=== PATIENT | male | born 1950 | race Caucasian/White ===

== ENCOUNTER 2017-07-16 20:24 | Inpatient (IN) | payer OTHER ==
[~2017-07-16] VITALS: Ht 172.7 cm; Wt 108.9 kg
[~2017-07-16 20:24] MED LIST: ACTOS30 MG PO; AZITHROMYCIN500 MG PO; ETODOLAC600 MG PO; GLUCOVANCE 5/501 TAB PO; TRAMADOL HCL-AP1 TAB PO; TRICOR145 MG PO
[2017-07-16] MEDS ORDERED: AMLOD-VALSA-HC1 EACH (20:38)
[2017-07-16] MEDS ORDERED: HUMALOG100 UNIT/1 (20:39)
[2017-07-16] MEDS ORDERED: TOUJEO SOL300 UNIT/1 (20:39)
[2017-07-21] MEDS ORDERED: LEVSIN/SL0.125 MG PO (10:03)
[2017-07-21] MEDS ORDERED: AMOX1TAB5 PO (10:03)
== END 2017-07-21 11:55 | disposition home or self-care (01) | DRG 392 ==
LOC: ER 20:24 → SEC-K 07-17 08:17 → MEDJ 07-17 08:17
DX: K57.32 Diverticulitis of large intestine without perforation or abscess without bleeding (principal); E11.9 Type 2 diabetes mellitus without complications; R07.89 Other chest pain

== ENCOUNTER 2018-05-14 10:16 | Outpatient (CLI) | payer OTHER ==
[~2018-05-14 10:16] MED LIST changes: +AMLOD-VALSA-HC1 EACH; +AMOX1TAB5 PO; +HUMALOG100 UNIT/1; +LEVSIN/SL0.125 MG PO; +TOUJEO SOL300 UNIT/1
== END 2018-05-14 16:33 | disposition home or self-care (01) ==
LOC: NUCLEAR 10:16
DX: I20.9 Angina pectoris, unspecified (principal)
CPT/HCPCS: 78452; 93017; J0153; A9500; 93307

== ENCOUNTER → 2018-07-03 | Outpatient (CLI) | payer OTHER ==
[~2018-07-03] MED LIST changes: +ASA81 MG; +CARVEDILOL3.125 MG; +PLAVIX75 MG; +SIMVASTATIN40 MG; +XARELTO15 MG
== END | disposition home or self-care (01) ==
LOC: NUCLEAR 15:01
DX: I87.2 Venous insufficiency (chronic) (peripheral) (principal)

== ENCOUNTER 2018-07-10 17:28 | Inpatient (IN) | payer OTHER ==
[~2018-07-10] VITALS: Ht 243.8 cm; Wt 5.0 kg
[~2018-07-10 17:28] MED LIST changes: -ASA81 MG; -CARVEDILOL3.125 MG; -PLAVIX75 MG; -SIMVASTATIN40 MG; -XARELTO15 MG
[2018-07-10] MEDS ORDERED: CARVEDILOL3.125 MG (17:39)
[2018-07-10] MEDS ORDERED: PLAVIX75 MG (17:39)
[2018-07-10] MEDS ORDERED: ASA81 MG (17:39)
[2018-07-10] MEDS ORDERED: XARELTO15 MG (17:40)
[2018-07-10] MEDS ORDERED: SIMVASTATIN40 MG (17:40)
[2018-07-17] MEDS ORDERED: AMOX1TAB5 PO (16:04)
[2018-07-17] MEDS ORDERED: INTESTINEX680 M1 PO (16:05)
[2018-07-17] MEDS ORDERED: SIMVASTATIN40 MG PO (16:08)
== END 2018-07-17 16:31 | disposition home or self-care (01) | DRG 638 ==
LOC: ER 17:28 → MEDJ 17:47
PROVIDERS: ADMIT Internal Medicine
PROC: B54BZZZ Ultrasonography of Right Lower Extremity Veins (ICD-10-PCS; principal; 2018-07-10)
PROC: BL3 Imaging, Connective Tissue, Magnetic Resonance Imaging (MRI) (ICD-10-PCS; 2018-07-15)
DX: E11.628 Type 2 diabetes mellitus with other skin complications (principal); L03.115 Cellulitis of right lower limb; Z79.4 Long term (current) use of insulin; I25.10 Atherosclerotic heart disease of native coronary artery without angina pectoris; E78.49 Other hyperlipidemia; E66.09 Other obesity due to excess calories; E11.65 Type 2 diabetes mellitus with hyperglycemia; E11.22 Type 2 diabetes mellitus with diabetic chronic kidney disease; I12.9 Hypertensive chronic kidney disease with stage 1 through stage 4 chronic kidney disease, or unspecified chronic kidney disease; N18.2 Chronic kidney disease, stage 2 (mild)
CPT/HCPCS: 73221

== ENCOUNTER 2018-12-01 10:28 | Emergency (ER) | payer OTHER ==
[~2018-12-01] VITALS: Ht 172.7 cm; Wt 108.9 kg
[~2018-12-01 10:28] MED LIST changes: +ASA81 MG; +CARVEDILOL3.125 MG; +INTESTINEX680 M1 PO; +PLAVIX75 MG; +SIMVASTATIN40 MG; +SIMVASTATIN40 MG PO; +XARELTO15 MG
[2018-12-01] MEDS ORDERED: NORVASC5 MG (10:42)
[2018-12-01] MEDS ORDERED: NORFLEX100MG PO (14:55)
== END 2018-12-01 15:10 | disposition home or self-care (01) ==
LOC: ER 10:28
DX: K57.90 Diverticulosis of intestine, part unspecified, without perforation or abscess without bleeding (principal)

== ENCOUNTER 2018-12-30 09:03 | Outpatient (CLI) | payer OTHER ==
[~2018-12-30 09:03] MED LIST changes: +NORFLEX100MG PO; +NORVASC5 MG
== END 2018-12-30 09:09 | disposition home or self-care (01) ==
LOC: SONOGRAMA 09:03
DX: R97.20 Elevated prostate specific antigen [PSA] (principal)

== ENCOUNTER 2023-07-31 22:48 | Inpatient (IN) | payer OTHER ==
[~2023-07-31] VITALS: Ht 172.7 cm; Wt 104.3 kg
[2023-07-31] MEDS ORDERED: CARVEDILOL ER40 MG PO (23:14)
[2023-07-31] MEDS ORDERED: GLIPIZIDE XL10 MG (23:14)
[2023-07-31] MEDS ORDERED: OCUVITE LUTEIN1 EAC2 PO (23:14)
[2023-07-31] MEDS ORDERED: LIPITOR40 M1 PO (23:15)
[2023-07-31] MEDS ORDERED: HYDROCHLOROTH12.5 M2 PO (23:15)
[2023-07-31] MEDS ORDERED: BAYER CHEWABLE81 MG PO (23:15)
[2023-07-31] MEDS ORDERED: COZAAR25 MG PO (23:15)
[2023-07-31] MEDS ORDERED: LANTUS SOL100 UNIT/1 (23:16)
[2023-07-31] MEDS ORDERED: GABAPENTIN400 MG PO (23:16)
[2023-08-01] MEDS ORDERED: RINGERS SOLUTION,LACTATED 1,000 ML IV STA (01:23)
[2023-08-01 02:05] LABS: HEMATOCRIT 28.8 % (39.0-48.0); MEAN CELL VOLUME 80.2 fL (80.0-100.00); MEAN CORPUSCULAR HGB CONC 32.6 g/dl (32.0-36.0); RED BLOOD COUNT 3.59 M/uL (4.00-6.00); RED CELL DISTRIBUTION WIDTH 15.9 % (11.5-14.5)
[2023-08-01 02:08] LABS: HEMOGLOBIN 9.4 g/dL (13-16.00); MEAN CORPUSCULAR HEMOGLOBIN 26.1 pg (27.00-32.0); PLATELET COUNT 539 K/uL (150-450)
[2023-08-01 02:19] LABS: ALBUMIN 1.7 gm/dL (3.4-5.0); BILIRUBIN TOTAL 0.46 mg/dL (0.3-1.2); CALCIUM 8.8 mg/dL (8.5-10.1); CREATININE SERUM 1.91 mg/dL (0.70-1.30); GFR 34.71; GLOBULINA 5.2 G/DL (2.4-3.5); POTASSIUM 5.14 mEq/L (3.5-5.1); TOTAL PROTEIN 6.9 gm/dL (6.4-8.2)
[2023-08-01] MEDS ORDERED: 0.9 % SODIUM CHLORIDE 1,000 ML IV SCH ×3 (07:15→18:00)
[2023-08-01 08:12] LABS: URINE APPEARANCE Clear; URINE BILIRRUBIN Negative (NEGATIVE); URINE BLOOD Negative; URINE COLOR Yellow; URINE GLUCOSE Negative (NEGATIVE); URINE LEUKOCYTE Negative; URINE NITRATE Negative; URINE PROTEIN 30 (NEGATIVE)
[2023-08-01 08:15] LABS: URINE BACTERIA 46.6 uL (0.0-1933); URINE EPITHELIAL CELLS 15.1 uL (0.0-38.8); URINE WBC 3.5 uL (0.0-23.2)
[2023-08-01] MEDS ORDERED: SILVER SULFADIAZINE 50 GM JAR TOP SCH (11:52)
[2023-08-01] MEDS ORDERED: NYSTATIN 30 GM CREAM.GM. TOP SCH (11:53)
[2023-08-01] MEDS ORDERED: ZINC OXIDE 30 GM TUBE TOP SCH (11:54)
[2023-08-01] MEDS ORDERED: NYSTATIN 30 GM,SILVER SULFADIAZINE 50 GM,ZINC OXIDE 30 GM TOP SCH (17:00)
[2023-08-01] MEDS ORDERED: INSULIN LISPRO 1,000 UNIT/10 ML UNITS SUBCUTANEO PRN (18:00)
[2023-08-01] MEDS ORDERED: DEXTROSE 50 % IN WATER 0.5 G/ML DISP.SYRIN IV PRN (18:00)
[2023-08-01] MEDS ORDERED: CEFTRIAXONE SODIUM 1,000 MG VIAL IV SCH (18:05)
[2023-08-01] MEDS ORDERED: ACETAMINOPHEN 500 MG GEL..CAP PO PRN (18:15)
[2023-08-01] MEDS ORDERED: hydrALAZINE HCL 20 MG VIAL IV PRN (18:15)
[2023-08-01] MEDS ORDERED: MEPERIDINE HCL/PF 25 MG/ML VIAL IM PRN (18:15)
[2023-08-01] MEDS ORDERED: ONDANSETRON HCL 4 MG in 0.9 % SODIUM CHLORIDE 50 ML IV PRN (18:15)
[2023-08-01] MEDS ORDERED: CEFTRIAXONE SODIUM 1,000 MG VIAL ONE (19:23)
[2023-08-01] MEDS ORDERED: FAMOTIDINE/PF 20 MG/2 ML VIAL ONE (19:24)
[2023-08-01] MEDS ORDERED: DEXTROSE 50 % IN WATER 0.5 G/ML VIAL IV PRN (19:45)
[2023-08-01] MEDS ORDERED: FAMOTIDINE/PF 20 MG in 0.9 % SODIUM CHLORIDE 8 ML IV PUSH SCH (21:00)
[2023-08-02 06:34] LABS: INR 1.06; PARTIAL THROMBOPLASTIN TIME 22.8 SECONDS (22.0-34.0); PROTHROMBIN TIME 11.1 SECONDS (9.0-11.5)
[2023-08-02 07:09] LABS: MEAN CELL VOLUME 78.8 fL (80.0-100.00); MEAN CORPUSCULAR HGB CONC 33.3 g/dl (32.0-36.0); PLATELET COUNT 450 K/uL (150-450); RED BLOOD COUNT 3.18 M/uL (4.00-6.00); RED CELL DISTRIBUTION WIDTH 16.3 % (11.5-14.5)
[2023-08-02] MEDS ORDERED: FAMOTIDINE/PF 20 MG/2 ML VIAL ONE ×2 (07:10→16:13)
[2023-08-02 07:31] LABS: HEMOGLOBIN 8.3 g/dL (13-16.00); MEAN CORPUSCULAR HEMOGLOBIN 26.1 pg (27.00-32.0)
[2023-08-02 08:05] LABS: ALBUMIN 1.6 gm/dL (3.4-5.0); BILIRUBIN TOTAL 0.31 mg/dL (0.3-1.2); BILIRUBIN,CONJUGATED 0.18 mg/dL (0.0-0.2); BILIRUBIN,UNCONJUGATED 0.13 mg/dL (0.0-0.6); CHOL HDL RATIO 2.8 (0-5.0); TOTAL PROTEIN 5.4 gm/dL (6.4-8.2)
[2023-08-02 08:08] LABS: ALBUMIN 1.6 gm/dL (3.4-5.0); BILIRUBIN TOTAL 0.31 mg/dL (0.3-1.2); C-REACTIVE PROTEIN 11.1 MG/DL (0.00-0.29); CALCIUM 8.5 mg/dL (8.5-10.1); CREATININE SERUM 1.46 mg/dL (0.70-1.30); GFR 47.33; GLOBULINA 3.8 G/DL (2.4-3.5); POTASSIUM 4.99 mEq/L (3.5-5.1); TOTAL PROTEIN 5.4 gm/dL (6.4-8.2)
[2023-08-02 08:21] LABS: URINE APPEARANCE Clear; URINE BILIRRUBIN Negative (NEGATIVE); URINE BLOOD Negative; URINE COLOR Yellow; URINE GLUCOSE Negative (NEGATIVE); URINE LEUKOCYTE Negative; URINE NITRATE Negative; URINE PROTEIN 30 (NEGATIVE)
[2023-08-02 08:25] LABS: URINE BACTERIA 26.4 uL (0.0-1933); URINE EPITHELIAL CELLS 1.6 uL (0.0-38.8); URINE WBC 2.1 uL (0.0-23.2)
[2023-08-02 09:00] LABS: URINE RBC 1.8 uL (0.0-20.8)
[2023-08-02] MEDS ORDERED: ASPIRIN 81 MG TABLET.EC PO SCH (09:00)
[2023-08-02] MEDS ORDERED: ATORVASTATIN CALCIUM 20 MG TABLET PO SCH (09:00)
[2023-08-02] MEDS ORDERED: TAMSULOSIN HCL 0.4 MG CAP PO SCH (09:00)
[2023-08-02] MEDS ORDERED: CARVEDILOL 25 MG TABLET PO SCH (09:00)
[2023-08-02] MEDS ORDERED: HYDROCHLOROTHIAZIDE 12.5 MG CAPSULE PO SCH (09:00)
[2023-08-02] MEDS ORDERED: ENOXAPARIN SODIUM 40 MG/0.4 ML SYRINGE SUBCUTANEO SCH (09:00)
[2023-08-02] MEDS ORDERED: LOSARTAN POTASSIUM 100 MG TABLET PO SCH (09:00)
[2023-08-02 09:36] LABS: C-REACTIVE PROTEIN 11.2 MG/DL (0.00-0.29)
[2023-08-02] MEDS ORDERED: Dextrose ORAL GEL 37.5GM GEL PO ONE (09:51)
[2023-08-02 15:36] LABS: HEMATOCRIT 27.5 % (39.0-48.0); HEMOGLOBIN 9.2 g/dL (13-16.00); MEAN CELL VOLUME 80.7 fL (80.0-100.00); MEAN CORPUSCULAR HEMOGLOBIN 26.9 pg (27.00-32.0); MEAN CORPUSCULAR HGB CONC 33.3 g/dl (32.0-36.0); PLATELET COUNT 536 K/uL (150-450); RED BLOOD COUNT 3.41 M/uL (4.00-6.00)
[2023-08-02 16:34] LABS: ERYTHROCYTE SEDIMENTATION RATE 86 mm/hr
[2023-08-03] MEDS ORDERED: FAMOTIDINE/PF 20 MG/2 ML VIAL ONE (07:08)
[2023-08-03 08:14] LABS: CALCIUM 8.1 mg/dL (8.5-10.1); CREATININE SERUM 1.32 mg/dL (0.70-1.30); GFR 53.17; POTASSIUM 4.9 mEq/L (3.5-5.1)
[2023-08-03 08:54] LABS: HEMATOCRIT 24.5 % (39.0-48.0); MEAN CELL VOLUME 80.2 fL (80.0-100.00); MEAN CORPUSCULAR HEMOGLOBIN 26.2 pg (27.00-32.0); MEAN CORPUSCULAR HGB CONC 32.6 g/dl (32.0-36.0); PLATELET COUNT 418 K/uL (150-450); RED BLOOD COUNT 3.05 M/uL (4.00-6.00)
[2023-08-03] MEDS ORDERED: LACTOBACILLUS ACIDOPHILUS 1 CAP CAP PO SCH (09:00)
[2023-08-03] MEDS ORDERED: SODIUM BICARBONATE 325 MG TABLET PO SCH (17:00)
[2023-08-04] MEDS ORDERED: TUBERCULIN,PURIF.PROT.DERIV. 5 TU/0.1 ML VIAL ID ONE (08:00)
[2023-08-04] MEDS ORDERED: FAMOTIDINE/PF 20 MG/2 ML VIAL ONE (19:28)
[2023-08-05 07:39] LABS: HEMATOCRIT 24.1 % (39.0-48.0); MEAN CORPUSCULAR HEMOGLOBIN 26.1 pg (27.00-32.0); MEAN CORPUSCULAR HGB CONC 33.5 g/dl (32.0-36.0); PLATELET COUNT 439 K/uL (150-450); RED CELL DISTRIBUTION WIDTH 16.2 % (11.5-14.5)
[2023-08-05 07:56] LABS: HEMOGLOBIN 8.1 g/dL (13-16.00)
[2023-08-05] MEDS ORDERED: FAMOTIDINE/PF 20 MG/2 ML VIAL ONE (08:04)
[2023-08-05] MEDS ORDERED: TRAMADOL HCL 50 MG TABLET PO PRN (08:45)
[2023-08-05] MEDS ORDERED: AMINO ACIDS 1 EACH TABLET PO SCH (09:00)
[2023-08-05] MEDS ORDERED: FERROUS SULFATE 325 MG TABLET.EC PO SCH (10:44)
[2023-08-05 17:03] LABS: FERRITIN 1277.9 NG/ML (26-388)
[2023-08-05] MEDS ORDERED: EPOETIN ALFA-EPBX 10,000 UNIT/ML VIAL (Retacrit) SUBCUTANEO NR (19:45)
[2023-08-06] MEDS ORDERED: FUROsemide 20 MG/2 ML VIAL IV SCH (13:30)
[2023-08-06] MEDS ORDERED: BARIUM SULFATE 450 ML ORAL.SUSP PO NR (14:00)
[2023-08-06 16:12] LABS: FERRITIN 1264.8 NG/ML (26-388)
[2023-08-06 16:54] LABS: FOLIC ACID 12.58 ng/ml (4.78-20)
[2023-08-06 21:33] LABS: RH NEGATIVE
[2023-08-07 01:05] LABS: hav igm Negative (Negative); hcv Non Reactive (Non Reactive); hep b c Negative (Negative)
[2023-08-07] MEDS ORDERED: BARIUM SULFATE 450 ML ORAL.SUSP PO ONE (07:15)
[2023-08-07] MEDS ORDERED: SOD FERRIC GLUC COMPLX/SUCROSE 62.5 MG/5 ML AMPUL IV SCH (09:00)
[2023-08-07] MEDS ORDERED: TRAMADOL HCL 50 MG TABLET PO PRN (10:45)
[2023-08-07] MEDS ORDERED: SODIUM CHLORIDE 0.45 % 1,000 ML IV SCH (16:15)
[2023-08-07] MEDS ORDERED: DOXAZOSIN MESYLATE 2 MG TABLET PO SCH (21:00)
[2023-08-08] MEDS ORDERED: CEFTRIAXONE SODIUM 2,000 MG VIAL IV SCH (09:00)
[2023-08-08 09:08] LABS: free psa < 0.02 ng/mL; total psa < 0.1 ng/mL (0.0-4.0)
[2023-08-09 04:08] LABS: HEMATOCRIT 30.5 % (39.0-48.0); HEMOGLOBIN 10.3 g/dL (13-16.00); MEAN CELL VOLUME 77.8 fL (80.0-100.00); MEAN CORPUSCULAR HEMOGLOBIN 26.2 pg (27.00-32.0); MEAN CORPUSCULAR HGB CONC 33.7 g/dl (32.0-36.0); PLATELET COUNT 431 K/uL (150-450); RED BLOOD COUNT 3.91 M/uL (4.00-6.00); RED CELL DISTRIBUTION WIDTH 15.6 % (11.5-14.5)
[2023-08-09 04:49] LABS: ALBUMIN 1.9 gm/dL (3.4-5.0); BILIRUBIN TOTAL 0.86 mg/dL (0.3-1.2); CALCIUM 8.3 mg/dL (8.5-10.1); CREATININE SERUM 1.37 mg/dL (0.70-1.30); GFR 50.93; GLOBULINA 3.7 G/DL (2.4-3.5); POTASSIUM 4.61 mEq/L (3.5-5.1); TOTAL PROTEIN 5.6 gm/dL (6.4-8.2)
[2023-08-12] MEDS ORDERED: MIDAZOLAM HCL 2 MG/2 ML VIAL IV PUSH ONE (17:45)
[2023-08-12] MEDS ORDERED: fentaNYL CITRATE 50 MCG/ML AMPUL IV PUSH ONE (17:45)
[2023-08-13 08:56] LABS: HEMOGLOBIN 9.1 g/dL (13-16.00); MEAN CELL VOLUME 79.4 fL (80.0-100.00); MEAN CORPUSCULAR HEMOGLOBIN 26.6 pg (27.00-32.0); MEAN CORPUSCULAR HGB CONC 33.5 g/dl (32.0-36.0); PLATELET COUNT 284 K/uL (150-450); RED BLOOD COUNT 3.41 M/uL (4.00-6.00); RED CELL DISTRIBUTION WIDTH 16.2 % (11.5-14.5)
[2023-08-13 09:01] LABS: ERYTHROCYTE SEDIMENTATION RATE 32 mm/hr
[2023-08-13 09:18] LABS: ALBUMIN 1.7 gm/dL (3.4-5.0); BILIRUBIN TOTAL 0.31 mg/dL (0.3-1.2); C-REACTIVE PROTEIN 4.64 MG/DL (0.00-0.29); CALCIUM 7.8 mg/dL (8.5-10.1); CREATININE SERUM 1.17 mg/dL (0.70-1.30); GFR 61.11; GLOBULINA 3.2 G/DL (2.4-3.5); POTASSIUM 4.27 mEq/L (3.5-5.1); TOTAL PROTEIN 4.9 gm/dL (6.4-8.2)
[2023-08-13] MEDS ORDERED: SODIUM CHLORIDE FOR INHALATION 1 VIAL.NEB IH NR (13:00)
[2023-08-13] MEDS ORDERED: ASCORBIC ACID 500 MG TABLET PO SCH (13:00)
[2023-08-13] MEDS ORDERED: ZINC SULFATE 220 MG CAPSULE PO SCH (17:00)
[2023-08-13] MEDS ORDERED: REMDESIVIR 100 MG VIAL IV SCH (17:00)
[2023-08-13] MEDS ORDERED: CHOLECALCIFEROL (VITAMIN D3) 5,000 UNITS TABLET PO SCH (17:00)
[2023-08-13] MEDS ORDERED: SODIUM CHLORIDE FOR INHALATION 1 VIAL.NEB IH SCH (21:00)
[2023-08-14] MEDS ORDERED: IRON FUM,PS/FOLIC ACID/VITC/B3 1 CAP CAPSULE PO SCH (09:00)
[2023-08-14] MEDS ORDERED: REMDESIVIR 100 MG VIAL IV SCH (12:00)
[2023-08-15 08:39] LABS: HEMATOCRIT 26.4 % (39.0-48.0); MEAN CELL VOLUME 79.3 fL (80.0-100.00); MEAN CORPUSCULAR HGB CONC 33.4 g/dl (32.0-36.0); PLATELET COUNT 281 K/uL (150-450); RED BLOOD COUNT 3.33 M/uL (4.00-6.00); RED CELL DISTRIBUTION WIDTH 16.5 % (11.5-14.5)
[2023-08-15 08:42] LABS: MEAN CORPUSCULAR HEMOGLOBIN 26.4 pg (27.00-32.0)
[2023-08-15 08:43] LABS: HEMOGLOBIN 8.8 g/dL (13-16.00)
[2023-08-15] MEDS ORDERED: FUROsemide 20 MG/2 ML VIAL IV SCH (14:45)
[2023-08-17 04:23] LABS: HEMATOCRIT 33.3 % (39.0-48.0); HEMOGLOBIN 11.3 g/dL (13-16.00); MEAN CELL VOLUME 79.5 fL (80.0-100.00); MEAN CORPUSCULAR HGB CONC 33.9 g/dl (32.0-36.0); PLATELET COUNT 282 K/uL (150-450); RED BLOOD COUNT 4.19 M/uL (4.00-6.00); RED CELL DISTRIBUTION WIDTH 16.5 % (11.5-14.5)
[2023-08-18] MEDS ORDERED: GUAIFENESIN/DEXTROMETHORPHAN 10ML BLIST.PACK PO SCH (13:15)
[2023-08-19] MEDS ORDERED: DOXYCYCLINE HYCLATE 100 MG CAPSULE PO SCH (21:00)
[2023-08-20 08:19] LABS: HEMATOCRIT 34.7 % (39.0-48.0); HEMOGLOBIN 11.6 g/dL (13-16.00); MEAN CELL VOLUME 80.5 fL (80.0-100.00); MEAN CORPUSCULAR HEMOGLOBIN 26.8 pg (27.00-32.0); MEAN CORPUSCULAR HGB CONC 33.2 g/dl (32.0-36.0); PLATELET COUNT 340 K/uL (150-450); RED BLOOD COUNT 4.31 M/uL (4.00-6.00); RED CELL DISTRIBUTION WIDTH 16.8 % (11.5-14.5)
[2023-08-20 08:37] LABS: ERYTHROCYTE SEDIMENTATION RATE 54 mm/hr
[2023-08-20 08:46] LABS: ALBUMIN 1.9 gm/dL (3.4-5.0); BILIRUBIN TOTAL 0.42 mg/dL (0.3-1.2); CALCIUM 8.2 mg/dL (8.5-10.1); CREATININE SERUM 1.01 mg/dL (0.70-1.30); GFR 72.41; GLOBULINA 3.5 G/DL (2.4-3.5); POTASSIUM 4.42 mEq/L (3.5-5.1); TOTAL PROTEIN 5.4 gm/dL (6.4-8.2)
[2023-08-20 08:49] LABS: C-REACTIVE PROTEIN 2.21 MG/DL (0.00-0.29)
[2023-08-24] MEDS ORDERED: AMLODIPINE BESYLATE 2.5 MG TABLET PO SCH (09:00)
[2023-08-25 07:16] LABS: HEMATOCRIT 32.6 % (39.0-48.0); MEAN CELL VOLUME 79.7 fL (80.0-100.00); MEAN CORPUSCULAR HEMOGLOBIN 26.8 pg (27.00-32.0); MEAN CORPUSCULAR HGB CONC 33.7 g/dl (32.0-36.0); PLATELET COUNT 290 K/uL (150-450); RED BLOOD COUNT 4.09 M/uL (4.00-6.00); RED CELL DISTRIBUTION WIDTH 17.7 % (11.5-14.5)
[2023-08-25] MEDS ORDERED: CEFTRIAXONE SODIUM 2,000 MG VIAL IV SCH (17:00)
[2023-08-27 15:04] LABS: ALBUMIN 1.9 gm/dL (3.4-5.0); BILIRUBIN TOTAL 0.3 mg/dL (0.3-1.2); CALCIUM 8.2 mg/dL (8.5-10.1); CREATININE SERUM 0.96 mg/dL (0.70-1.30); GFR 76.78; GLOBULINA 3.2 G/DL (2.4-3.5); POTASSIUM 3.86 mEq/L (3.5-5.1); TOTAL PROTEIN 5.1 gm/dL (6.4-8.2)
[2023-08-27] MEDS ORDERED: DOXYCYCLINE HYCLATE 100 MG CAPSULE PO SCH (21:00)
[2023-09-01] MEDS ORDERED: MINERAL OIL 30 ML BLIST.PACK PO NR (19:30)
[2023-09-01] MEDS ORDERED: LACTULOSE 20 G/30 ML BLIST.PACK PO NR (19:30)
[2023-09-01] MEDS ORDERED: MAGNESIUM HYDROXIDE 30 ML BLIST.PACK PO NR (19:30)
[2023-09-02] MEDS ORDERED: DOCUSATE CALCIUM 240 MG CAPSULE PO SCH (09:00)
[2023-09-03] MEDS ORDERED: SOD FERRIC GLUC COMPLX/SUCROSE 62.5 MG/5 ML AMPUL IV SCH (17:00)
[2023-09-04 09:11] LABS: HEMATOCRIT 33.8 % (39.0-48.0); HEMOGLOBIN 11.1 g/dL (13-16.00); MEAN CELL VOLUME 82.5 fL (80.0-100.00); MEAN CORPUSCULAR HEMOGLOBIN 27.1 pg (27.00-32.0); MEAN CORPUSCULAR HGB CONC 32.9 g/dl (32.0-36.0); PLATELET COUNT 226 K/uL (150-450); RED BLOOD COUNT 4.09 M/uL (4.00-6.00); RED CELL DISTRIBUTION WIDTH 18.6 % (11.5-14.5)
[2023-09-04 09:55] LABS: ALBUMIN 2.2 gm/dL (3.4-5.0); BILIRUBIN TOTAL 0.42 mg/dL (0.3-1.2); CREATININE SERUM 1.16 mg/dL (0.70-1.30); GFR 61.71; GLOBULINA 3.7 G/DL (2.4-3.5); POTASSIUM 4.51 mEq/L (3.5-5.1); TOTAL PROTEIN 5.9 gm/dL (6.4-8.2)
[2023-09-05 08:47] LABS: ob POSITIVE (NEGATIVE)
== END 2023-09-06 13:10 | disposition designated cancer center or children's hospital (05) | DRG 637 ==
LOC: ER 22:49 → MEDI 08-01 18:44 → MEDJ 08-12 22:25 → O/R 08-19 11:00 → MEDJ 08-19 11:05
PROVIDERS: General Practice; Internal Medicine; Internal Medicine Hematology & Oncology; Internal Medicine Infectious Disease; Internal Medicine Nephrology; Student in an Organized Health Care Education/Training Program; ADMIT Internal Medicine; ATTEND Internal Medicine
PROC: BW4FZZZ Ultrasonography of Neck (ICD-10-PCS; 2023-08-05)
PROC: BB24ZZZ Computerized Tomography (CT Scan) of Bilateral Lungs (ICD-10-PCS; 2023-08-06)
PROC: BW21YZZ Computerized Tomography (CT Scan) of Abdomen and Pelvis using Other Contrast (ICD-10-PCS; 2023-08-07)
PROC: BW2FZZZ Computerized Tomography (CT Scan) of Neck (ICD-10-PCS; 2023-08-07)
PROC: 30233N1 Transfusion of Nonautologous Red Blood Cells into Peripheral Vein, Percutaneous Approach (ICD-10-PCS; 2023-08-07)
PROC: B246ZZZ Ultrasonography of Right and Left Heart (ICD-10-PCS; 2023-08-11)
PROC: 02HV33Z Insertion of Infusion Device into Superior Vena Cava, Percutaneous Approach (ICD-10-PCS; 2023-08-11)
PROC: 0RB Upper Joints, Excision (ICD-10-PCS; 2023-08-12)
PROC: XW033E5 Introduction of Remdesivir Anti-infective into Peripheral Vein, Percutaneous Approach, New Technology Group 5 (ICD-10-PCS; 2023-08-13)
PROC: 8E0ZXY6 Isolation (ICD-10-PCS; 2023-08-13)
PROC: BW3FZZZ Magnetic Resonance Imaging (MRI) of Neck (ICD-10-PCS; 2023-08-20)
PROC: BW3FYZZ Magnetic Resonance Imaging (MRI) of Neck using Other Contrast (ICD-10-PCS; 2023-08-20)
PROC: 0RB Upper Joints, Excision (ICD-10-PCS; principal; 2023-08-25)
DX: E11.628 Type 2 diabetes mellitus with other skin complications (principal); U07.1 COVID-19; M86.8X8 Other osteomyelitis, other site; M00.9 Pyogenic arthritis, unspecified; N39.0 Urinary tract infection, site not specified; E87.29 Other acidosis; N17.9 Acute kidney failure, unspecified; L89.152 Pressure ulcer of sacral region, stage 2; D50.0 Iron deficiency anemia secondary to blood loss (chronic); D64.89 Other specified anemias; R74.01 Elevation of levels of liver transaminase levels; I12.9 Hypertensive chronic kidney disease with stage 1 through stage 4 chronic kidney disease, or unspecified chronic kidney disease; E11.22 Type 2 diabetes mellitus with diabetic chronic kidney disease; N18.2 Chronic kidney disease, stage 2 (mild); E86.9 Volume depletion, unspecified; R22.1 Localized swelling, mass and lump, neck; M62.838 Other muscle spasm; M24.69 Ankylosis, other specified joint; L08.89 Other specified local infections of the skin and subcutaneous tissue; B96.20 Unspecified Escherichia coli [E. coli] as the cause of diseases classified elsewhere; B96.5 Pseudomonas (aeruginosa) (mallei) (pseudomallei) as the cause of diseases classified elsewhere; B96.6 Bacteroides fragilis [B. fragilis] as the cause of diseases classified elsewhere; B96.89 Other specified bacterial agents as the cause of diseases classified elsewhere; Z85.46 Personal history of malignant neoplasm of prostate; Z79.4 Long term (current) use of insulin
CPT/HCPCS: 70548

== ENCOUNTER 2024-10-05 09:37 | Outpatient (CLI) | payer OTHER ==
[~2024-10-05 09:37] MED LIST changes: +BAYER CHEWABLE81 MG PO; +CARVEDILOL ER40 MG PO; +COZAAR25 MG PO; +GABAPENTIN400 MG PO; +GLIPIZIDE XL10 MG; +HYDROCHLOROTH12.5 M2 PO; +LANTUS SOL100 UNIT/1; +LIPITOR40 M1 PO; +OCUVITE LUTEIN1 EAC2 PO
== END 2024-10-05 09:44 | disposition home or self-care (01) ==
LOC: RAD 09:37
PROVIDERS: ATTEND Internal Medicine
DX: J44.1 Chronic obstructive pulmonary disease with (acute) exacerbation (principal)